=== PATIENT | male | born 1945 | race Caucasian/White ===

== ENCOUNTER → 2019-04-28 | Outpatient (CLI) | payer OTHER ==
[2019-04-28 12:45] LABS: CREATININE 1.7 mg/dL (0.7-1.3)
== END ==
LOC: CAT 12:16
PROVIDERS: Nurse Practitioner
DX: M47.816 Spondylosis without myelopathy or radiculopathy, lumbar region (principal); N40.0 Benign prostatic hyperplasia without lower urinary tract symptoms; I70.0 Atherosclerosis of aorta; M25.78 Osteophyte, vertebrae; K56.41 Fecal impaction